=== PATIENT | male | born 1945 | race Caucasian/White ===

== ENCOUNTER 2016-08-01 15:44 | Emergency (ER) | payer OTHER, BC ==
[2016-08-01 15:56] VITALS: BP 162/94; PULSE 88; TEMP 98; BMI 26.5
--- NOTE | 2016-08-01 17:00 | PDOC ---
History of Present Illness <Patricia Michaud - Last Filed: 08/01/16 17:19> - History of Present Illness Initial Comments: 08/01/16 17:18 History of Present Illness <Rosalinda Matt - Last Filed: 08/01/16 16:50> - History of Present Illness Initial Comments: 08/01/16 17:01 The patient is a 70 year old male with no past medical hx who presents to the ED complaining of right sided neck pain for two days.The patient reports two nights ago he was laying in bed when he turned and twinged his neck. He states yesterday he felt little pain localized to the right side of his neck, but was able to get through the day. He notes last night the pain became worse and he was unable to sleep. He states his pain is worse when turning his head to the right. The patient denies any numbness, tingling, or weakness to his upper extremities. He denies any focal neurologic complaints. The patient denies any injury or direct trauma, or falls. The patient denies a hx of this neck pain in the past. The patient has no further complaints at this time. The patient denies chest pain, back pain, SOB <Patricia Michaud - Last Filed: 08/01/16 17:02> <Rosalinda Matt - Last Filed: 08/03/16 08:01> - General Chief Complaint: Pain Stated Complaint: NECK PAIN Time Seen by Provider: 08/01/16 15:48 Past History <Patricia Michaud - Last Filed: 08/01/16 17:19> - Past Medical History HTN: Yes Hypercholesterolemia: Yes - Surgical History Appendectomy: Yes - Psycho/Social/Smoking Cessation Hx Anxiety: No Suicidal Ideation: No Smoking History: Current every day smoker Have you smoked in the past 12 months: Yes Number of Cigarettes Smoked Daily: 6 Information on smoking cessation initiated: Yes 'Breaking Loose' booklet given: 08/01/16 Hx Alcohol Use: No Drug/Substance Use Hx: No Substance Use Type: None <Rosalinda Matt - Last Filed: 08/03/16 08:01> - Past Medical History Allergies/Adverse Reactions: Allergies Allergy/AdvReac Type Severity Reaction Status Date / Time shrimp Allergy Verified 08/01/16 15:50 FIGGS Allergy Uncoded 02/21/17 15:50 Home Medications: Ambulatory Orders Acetaminophen W/ Codeine #3 [Tylenol # 3 -] 1 tab PO PRN PRN 08/01/16 Amlodipine Besylate 5 mg PO DAILY 08/01/16 Cyclobenzaprine HCl 7.5 mg PO TID PRN #20 tablet 08/01/16 Ibuprofen [Motrin -] 600 mg PO TID #21 tablet 08/01/16 Simvastatin 5 mg PO DAILY 08/01/16 Review of Systems - Review of Systems Able to Perform ROS?: Yes Comments:: 08/01/16 17:02 Remainder of the review of systems is negative - HPI 12 point review of systems is as per history of present illness and otherwise negative <Patricia Michaud - Last Filed: 08/01/16 17:19> *Physical Exam - Vital Signs Last Vital Signs Temp Pulse Resp BP Pulse Ox 98 F 88 18 162/94 97 08/01/16 15:44 08/01/16 15:44 08/01/16 15:44 08/01/16 15:44 08/01/16 15:44 <Patricia Michaud - Last Filed: 08/01/16 17:19> - Vital Signs Last Vital Signs Temp Pulse Resp BP Pulse Ox 98 F 88 18 162/94 97 08/01/16 15:44 08/01/16 15:44 08/01/16 15:44 08/01/16 15:44 08/01/16 15:44 - Physical Exam Comments: 08/01/16 16:50 Physical exam Last Vital Signs Temp Pulse Resp BP Pulse Ox 98 F 88 18 162/94 97 08/01/16 15:44 08/01/16 15:44 08/01/16 15:44 08/01/16 15:44 08/01/16 15:44 Patient is alert and ambulatory and answering questions without difficulty Head is normocephalic and atraumatic There is no midline C-spine tenderness There is no lateral trapezius muscle tenderness There is some right and left lateral neck muscle spasm There is no lymph adenopathy or masses felt There is pain and spasm when the patient turns his head to the right There is no pain or spasm the patient turns his head to the left Patient is able to touch his chin to his chest and take his head back up without difficulty Motor strength is 5 out of 5 and equal in the upper extremities bilaterally Shoulder shrug is normal, hand backup sawyer normal bilat Gait is normal Patient is alert and answering questions There is no other spine tenderness <Rosalinda Matt - Last Filed: 08/03/16 08:01> Medical Decision Making - Medical Decision Making 08/01/16 16:52 70-year-old male who turned and slept wrong 2 nights ago, and awakened with some right neck pain and spasm, which is worsened in the past 2 days There was no fall or injury or direct trauma to the area There is no C-spine tenderness There is no fever or chills There is no numbness tingling or neurologic symptoms or weakness Normal neurologic exam Patient states that it felt much better when he was in the shower and warm water hit the area, the spasm seemed to resolve No clinical indications for x-rays at this time Neck muscle spasm-will treat with Motrin and Flexeril, warm compresses No clinical indication for x-rays of the C-spine at this time based on clinical decision rules <Rosalinda Matt - Last Filed: 08/03/16 08:01> *DC/Admit/Observation/Transfer - Attestations Scribe Attestion: 08/01/16 17:01 Documentation prepared by Patricia Michaud, acting as biomedical engineering internship for Rosalinda Matt MD/. <Patricia Michaud - Last Filed: 08/01/16 17:19> <Rosalinda Matt - Last Filed: 08/03/16 08:01> Diagnosis at time of Disposition: Neck muscle spasm - Discharge Dispostion Disposition: HOME Condition at time of disposition: Stable - Prescriptions Prescriptions: Cyclobenzaprine HCl 7.5 mg PO TID PRN #20 tablet PRN Reason: Muscle Spasms Ibuprofen [Motrin -] 600 mg PO TID #21 tablet - Patient Instructions Printed Discharge Instructions: Neck Sprain, DI for Neck Sprain Additional Instructions: Prescription strength Motrin-600 mg-one pill every 8 hours - take with food Flexeril, muscle relaxer, one pill every 8 hours as needed-do not drive when taking this medication as this medication may cause drowsiness Warm compresses, heating pad, or a warm shower to release the spasm Followup with your primary care physician in 24-48 hours Return immediately if you worsen in any way! Take your medications as directed
== END 2016-08-01 17:07 | disposition home or self-care (01) ==
LOC: FER 15:44
DX: M62.838 Other muscle spasm (principal); F17.210 Nicotine dependence, cigarettes, uncomplicated; I10 Essential (primary) hypertension; E78.00 Pure hypercholesterolemia, unspecified
CPT/HCPCS: 99282-25